=== PATIENT | female | born 1975 | race Caucasian/White ===

== ENCOUNTER → 2017-08-15 | Outpatient (CLI) | payer OTHER ==
--- NOTE | 2017-08-15 15:42 | RAD ---
4 views of the lumbar spine 08/15/2017 Indication: Low back pain following recent fall Comparison study: None Findings: No evidence of acute fracture or alignment abnormality is identified. Vertebral body heights appear grossly preserved. Mild disc degenerative disc space narrowing is seen throughout the visualized thoracolumbar spine. Mild facet arthrosis appears to be present in the inferior lumbar spine. No evidence of spondylolysis or spondylolisthesis is identified. No acute soft tissue changes are appreciated. Impression: Mild degenerative changes of the lumbar spine without evidence of acute fracture or alignment abnormality
--- NOTE | 2017-08-15 16:15 | RAD ---
CT of the abdomen and pelvis without contrast 08/15/2017 Indication: Abdominal pain x1 week. Increased since last night. History of tubal ligation. Comparison study: CT of the abdomen and pelvis April 16, 2004. Technique: Multidetector CT imaging of the abdomen and pelvis is obtained without contrast. Findings: Visualized lung bases are unremarkable. There is a 1.3 cm hypodensity in the anterior right liver which most likely represent small cyst, but is ultimately difficult to completely characterize on the basis of this exam. The gallbladder, spleen, and pancreas, have a grossly unremarkable noncontrast enhanced appearance. Adrenal glands appear to be grossly unremarkable. There is no evidence of bowel obstruction. There is a focal area of large bowel narrowing extending just distal to the hepatic flexure. The appearance is nonspecific and could represent normal peristalsis. A stricture or fixed narrowing cannot be completely excluded on the basis of this exam. No pneumoperitoneum is identified. No significant free fluid is seen in the abdomen or pelvis. The appendix is unremarkable. The bladder is grossly unremarkable. No acute osseous abnormalities are seen. Possible small amount of fluid is seen in the endometrial canal. Correlate with phase of menstrual cycle. Impression: 1. No evidence of acute intra-abdominal abnormality is identified 2. Focal area of large bowel narrowing just distal to the hepatic flexure. This most commonly reflects peristalsis. Cannot be completely excluded stricture or other causes of narrowing cannot be completely excluded. If concern persists follow-up exam with oral contrast, or colonoscopy could be considered. 3. 1.3 cm hypodensity in the anterior right liver. This most likely represents small cyst, but complete characterization is difficult on the basis of this study. Follow-up ultrasound could be performed as clinically indicated.
== END | disposition home or self-care (01) ==
LOC: CT 13:17
PROVIDERS: ATTEND Nurse Practitioner Family
DX: M51.37 Other intervertebral disc degeneration, lumbosacral region (principal); Z98.51 Tubal ligation status
CPT/HCPCS: 72100; 74176